=== PATIENT | female | born 1955 | race Caucasian/White ===

== ENCOUNTER → 2017-10-19 | Outpatient (CLI) | payer BC ==
--- NOTE | 2017-10-19 14:33 | MR ---
EXAMINATION TYPE: MR knee RT wo con DATE OF EXAM: 10/19/2017 COMPARISON: Outside right knee x-ray from 2 weeks ago. HISTORY: Rt knee pain per order. Pain for 2 years per patient. TECHNIQUE: Multiplanar, multisequence images of the knee is performed without IV contrast. FINDINGS: MEDIAL MENISCUS: Anterior horn is intact without tear. There is triangular shaped opacity posterior h orn of medial meniscus does not extend to articular surface. LATERAL MENISCUS: Anterior and posterior horns are intact without tear. CRUCIATE LIGAMENTS: The anterior and posterior cruciate ligaments are intact and unremarkable. COLLATERAL LIGAMENTS: The medial collateral ligament and lateral collateral ligament complex are inta ct and unremarkable. EXTENSOR MECHANISM: Visualized quadriceps and patellar tendons are intact. EFFUSION: There is moderate size suprapatellar joint effusion. POPLITEAL CYST: No popliteal/guevara cyst. TRICOMPARTMENT SPACES: Fairly moderate joint space loss patellofemoral compartment is seen. There is more mild joint space loss is mild to moderate spurring lateral and medial tibiofemoral compartments. CARTILAGE: Tricompartment articular cartilage is fairly well-maintained. BONE MARROW SIGNAL: No focal abnormal marrow signal is appreciated. OTHER: There is increased fluid anterior superficial infrapatellar soft tissue. IMPRESSION: 1. Intrasubstance tear posterior horn of medial meniscus. No full-thickness meniscal or ligamentous t ear is evident. 2. Background mild to moderate tricompartment degenerative changes as detailed above. 3. Moderate size suprapatellar joint effusion.
== END | disposition home or self-care (01) ==
LOC: RADMRIMAIN 13:08
PROVIDERS: ATTEND Orthopaedic Surgery
DX: S83.241A Other tear of medial meniscus, current injury, right knee, initial encounter (principal); M25.461 Effusion, right knee

== ENCOUNTER 2018-03-22 13:00 | Day surgery (SDC) | payer BC ==
[2018-03-21 08:13] VITALS: BMI 39.9
--- NOTE | 2018-03-22 12:40 | P.GSHP ---
History of Present Illness H&P Date: 03/22/18 CHIEF COMPLAINT: Colon screen HISTORY OF PRESENT ILLNESS: The patient is a 62-year-old female who presents for colon screen. Lower endoscopy was offered for further evaluation and management. PAST MEDICAL HISTORY: Please see list. PAST SURGICAL HISTORY: Please see list. MEDICATIONS: Please see list. ALLERGIES: Please see list. SOCIAL HISTORY: No illicit drug use FAMILY HISTORY: No reports of Crohn disease or ulcerative colitis. REVIEW OF ORGAN SYSTEMS: CONSTITUTIONAL: No reports of fevers or chills. PHYSICAL EXAM: VITAL SIGNS: Stable GENERAL: Well-developed pleasant in no acute distress. HEENT: No scleral icterus. Extraocular movements grossly intact. Moist buccal mucosa. NECK: Supple without lymphadenopathy. CHEST: Unlabored respirations. Equal bilateral excursions. CARDIOVASCULAR: Regular rate and rhythm. Distal 2+ pulses. ABDOMEN: Soft, nontender, nondistended. MUSCULOSKELETAL: No clubbing, cyanosis, or edema. ASSESSMENT: 1. Colon screen. PLAN: 1. Recommend proceeding with a lower endoscopy Past Medical History Past Medical History: Hyperlipidemia, Thyroid Disorder Additional Past Medical History / Comment(s): FACTOR V LEIDEN. PAST HX OF A- FIB HAD ABLATION NO FURTHER PROBLEMS History of Any Multi-Drug Resistant Organisms: None Reported Past Surgical History: Cardiac Ablation Additional Past Surgical History / Comment(s): d & c Past Anesthesia/Blood Transfusion Reactions: Motion Sickness, Postoperative Nausea & Vomiting (PONV) Smoking Status: Never smoker - Past Family History Father Family Medical History: Cancer Mother Family Medical History: Deep Vein Thrombosis (DVT) Sister(s) Family Medical History: Cancer Medications and Allergies Home Medications Medication Instructions Recorded Confirmed Type Aspirin EC [Ecotrin Low Dose] 81 mg PO DAILY 03/21/18 03/21/18 History Calcium Carbonate/Vitamin D3 1 tab PO DAILY 03/21/18 03/21/18 History [Calcium 600-Vit D3 200 Tablet] Levothyroxine Sodium [Synthroid] 75 mcg PO DAILY 03/21/18 03/21/18 History Magnesium Gluconate [Magonate] 500 mg PO DAILY 03/21/18 03/21/18 History Simvastatin 40 mg PO DAILY 03/21/18 03/21/18 History Allergies Allergy/AdvReac Type Severity Reaction Status Date / Time No Known Allergies Allergy Verified 03/21/18 08:04
[2018-03-22 13:22] VITALS: RESP 16; TEMP 96.9
[2018-03-22] MEDS ORDERED: LIDOCAINE 1% 20 ML VIAL (10MG/ML) FOR IV START INTRADERMA ONE (13:35)
[2018-03-22] MEDS: LACTATED RINGERS 1,000 ML IV SCH ×2 (13:35→14:37)
[2018-03-22] MEDS ORDERED: fentaNYL (PF) 50 MCG/ML 2 ML AMP ONE (14:17)
[2018-03-22] MEDS ORDERED: LIDOCAINE 1% INJ 10MG/ML (20 ML MDV) ONE (14:17)
[2018-03-22] MEDS ORDERED: PROPOFOL 10 MG/ML 20 ML VIAL IV ONE (14:17)
--- NOTE | 2018-03-22 14:46 | P.PCN ---
Date of Procedure: 03/22/18 Description of Procedure: PREOPERATIVE DIAGNOSIS: Colonoscopy screening. Family history of colon cancer, first degree relative. POSTOPERATIVE DIAGNOSIS: Colonoscopy screening. Family history of colon cancer, first degree relative. External hemorrhoids. OPERATION: Colonoscopy to the ileocecal valve and appendiceal orifice. SURGEON: Sujey Pollock MD. ANESTHESIA: MAC. INDICATIONS: The patient is a 62-year-old female who presents for her first colonoscopy screening. Benefits and risks were described and informed consent was obtained. DESCRIPTION OF PROCEDURE: The patient had undergone Gatorade, MiraLAX and Dulcolax prep. She had been brought into the operating room and laid in the left lateral decubitus position. After adequate intravenous sedation, the rectum was examined with 2% lidocaine jelly. External hemorrhoids were encountered. The rectal tone was within normal limits. No lesions were palpated in the rectal vault. An Olympus colonoscope was advanced until the ileocecal valve and appendiceal orifice were clearly viewed. The prep was good with visualization of the mucosal folds. No scattered diverticulosis was encountered. No colonic polyps were found. No evidence of focal colitis was found. Retroflexion of the scope demonstrated grade 1 internal hemorrhoids without active bleeding or inflammation. The colon was desufflated. The patient had tolerated the procedure well. Withdrawal time was over 6 minutes. FINDINGS: Internal hemorrhoids, grade 1 External prolapsed hemorrhoids, grade 2 Anal skin tag No sigmoid diverticulosis. No arteriovenous malformations. No adenomatous polyps. No focal colitis. RECOMMENDATIONS: Lower endoscopy in 5 years, 2022 for family history of colon cancer. Plan - Discharge Summary New Discharge Prescriptions: No Action Magnesium Gluconate [Magonate] 500 mg PO DAILY Levothyroxine Sodium [Synthroid] 75 mcg PO DAILY Aspirin EC [Ecotrin Low Dose] 81 mg PO DAILY Simvastatin 40 mg PO DAILY Calcium Carbonate/Vitamin D3 [Calcium 600-Vit D3 200 Tablet] 1 tab PO DAILY Discharge Medication List Aspirin EC [Ecotrin Low Dose] 81 mg PO DAILY 03/21/18 [History] Calcium Carbonate/Vitamin D3 [Calcium 600-Vit D3 200 Tablet] 1 tab PO DAILY [History] Levothyroxine Sodium [Synthroid] 75 mcg PO DAILY 03/21/18 [History] Magnesium Gluconate [Magonate] 500 mg PO DAILY 03/21/18 [History] Simvastatin 40 mg PO DAILY 03/21/18 [History]
[2018-03-22 14:59] VITALS: BP 127/78; PULSE 66
== END 2018-03-22 15:27 | disposition home or self-care (01) ==
LOC: ORWHC2ENDO 13:00
PROVIDERS: ATTEND Surgery Plastic and Reconstructive Surgery
DX: Z12.11 Encounter for screening for malignant neoplasm of colon (principal); K64.0 First degree hemorrhoids; K64.1 Second degree hemorrhoids; K64.4 Residual hemorrhoidal skin tags; Z80.0 Family history of malignant neoplasm of digestive organs; E78.5 Hyperlipidemia, unspecified; E07.9 Disorder of thyroid, unspecified; D68.51 Activated protein C resistance; Z79.82 Long term (current) use of aspirin; Z79.890 Hormone replacement therapy; Z79.899 Other long term (current) drug therapy
CPT/HCPCS: J2001; J3010; J2704; G0105

== ENCOUNTER → 2019-02-27 | Outpatient (CLI) | payer BC ==
--- NOTE | 2019-02-27 14:14 | BD ---
EXAMINATION TYPE: Axial Bone Density DATE OF EXAM: 02/27/2019 COMPARISON: NONE CLINICAL HISTORY: Height: 5 FT 4 IN Weight: 244 FRAX RISK QUESTIONS: History of Fracture in Adulthood: YES Secondary Osteoporosis: 3. Menopause before 45: YES RISK FACTORS HISTORY OF: Family History of Osteoporosis: YES Active: YES Postmenopausal woman: DONE BEFORE 41 MEDICATIONS: Thyroid Medications: YES Which medication: LEVOTHYROXINE How Long: SEV YEARS Additional Medications: LEVOTHYROXINE, CHOLESTEROL MEDS, CALCIUM ,BABY ASPIRIN, MAGNESIUM Additional History: EXAM MEASUREMENTS: Bone mineral densitometry was performed using the Super Vitamin D System. Bone mineral density as measured about the Lumbar spine is: ----- L1-L4(G/cm2): 1.169 T Score Values are as follows: ----- L2: -0.5 ----- L3: 0.3 ----- L4: -0.1 ----- L1-L4: -0.1 Bone mineral density has: DECREASED -15.9 % since study of: 2001 Bone mineral density about the R hip (g/cm2): 0.763 Bone mineral density about the L hip (g/cm2): 0.773 T Score values are as follows: -----R Neck: -2.0 -----L Neck: -1.9 -----R Total: -1.0 -----L Total: -1.2 Bone mineral density has: DECREASED -5.2 % since study of: 2001 IMPRESSION: Osteopenia of the left hip. NOTE: T-SCORE=SD OF THE YOUNG ADULT MEAN.
== END | disposition home or self-care (01) ==
LOC: RADBDWWP 09:52
PROVIDERS: ATTEND Family Medicine
DX: M16.11 Unilateral primary osteoarthritis, right hip (principal)
CPT/HCPCS: 77080

== ENCOUNTER → 2023-12-27 | Outpatient (CLI) | payer BC ==
[2023-12-27 18:48] LABS: ALT 15 U/L (8-44); AST 23 U/L (13-35); Albumin 4.3 g/dL (3.8-4.9); Albumin/Globulin Ratio 1.54 Ratio (1.60-3.17); Alkaline Phosphatase 70 U/L (41-126); Calcium 9.9 mg/dL (8.7-10.3); Chloride 101 mmol/L (96-109); Globulin 2.8 g/dL (1.6-3.3); Glucose 126 mg/dL (70-110); Magnesium 2.1 mg/dL (1.5-2.4); Potassium 4.5 mmol/L (3.5-5.5); Sodium 138 mmol/L (135-145); Total Bilirubin 0.4 mg/dL (0.3-1.2); Total Protein 7.1 g/dL (6.2-8.2)
== END | disposition home or self-care (01) ==
LOC: LABWHC1 13:45
PROVIDERS: ATTEND Internal Medicine Clinical Cardiac Electrophysiology
DX: I48.91 Unspecified atrial fibrillation (principal)
CPT/HCPCS: 36415; 80053; 83735; 84443

== ENCOUNTER → 2024-03-12 | Outpatient (CLI) | payer MEDICARE ==
--- NOTE | 2024-03-13 19:13 | MM ---
Reason for Exam: Screening (asymptomatic). Last mammogram was performed 1 year(s) and 7 month(s) ago. Patient History: Menarche at age 13. First Full-Term at age 30. Postmenopausal. Risk Values: Maite 5 year model risk: 1.9%. NCI Lifetime model risk: 6.4%. Prior Study Comparison: 02/13/2001 Bilateral Screening Mammogram, [facility]. 06/25/2002 Bilateral Screening Mammogram, [facility]. Tissue Density: There are scattered areas of fibroglandular density. Findings: Analyzed By CAD. Focal asymmetry central posterior left breast is more defined. This may represent superimposition shadow but further evaluation is recommended. Otherwise, no significant change. Overall Assessment: Incomplete: need additional imaging evaluation, BI-RAD 0 Management: Special View Mammogram of the left breast. Diagnostic Breast Ultrasound of the left breast. [facility] will attempt to contact patient to return for supplemental views and ultrasound if indicated. Electronically signed and approved by: Merline Ramirez M.D. Radiologist
== END | disposition home or self-care (01) ==
LOC: RADMAMWWP 13:48
PROVIDERS: ATTEND Family Medicine
DX: Z12.31 Encounter for screening mammogram for malignant neoplasm of breast (principal); Z78.0 Asymptomatic menopausal state
CPT/HCPCS: 77067

== ENCOUNTER → 2024-03-15 | Outpatient (CLI) | payer MEDICARE ==
--- NOTE | 2024-03-15 13:55 | MM ---
Reason for Exam: Additional evaluation requested from abnormal screening. Last screening mammogram was performed less than 1 month ago. Patient History: Menarche at age 13. First Full-Term at age 30. Postmenopausal. Risk Values: Maite 5 year model risk: 1.9%. NCI Lifetime model risk: 6.4%. Prior Study Comparison: 05/21/2021 Bilateral Screening Mammogram, [facility]. 08/23/2022 Bilateral Screening Mammogram, [facility]. 03/12/2024 Bilateral MG screening mammo w CAD, [facility]. Tissue Density: Left: There are scattered areas of fibroglandular density. Findings: Analyzed By CAD. Area of concern/asymmetry compresses out on spot compression imaging. No suspicious masses, calcifications or distortions. Overall Assessment: Negative, BI-RAD 1 Management: Screening Mammogram of both breasts in 1 year. Results were given to the patient verbally at the time of exam. Patient should continue monthly self-breast exams. A clinical breast exam by your physician is recommended on an annual basis. This exam should not preclude additional follow-up of suspicious palpable abnormalities. Note on Maite scores and lifetime risk: 1. A Maite score greater than 3% is considered moderate risk. If this is the case, consider specialist referral to assess eligibility for a risk reducing agent. 2. If overall lifetime risk for the development of breast cancer is 20% or higher, the patient may qualify for future screening with alternating mammogram and breast MRI. Electronically signed and approved by: Chris Shaffer DO
== END | disposition home or self-care (01) ==
LOC: RADMAMWWP 13:15
PROVIDERS: ATTEND Family Medicine
DX: R92.322 Mammographic fibroglandular density, left breast (principal); Z78.0 Asymptomatic menopausal state
CPT/HCPCS: 77065; G0279; 77061

== ENCOUNTER → 2024-03-29 | Outpatient (CLI) | payer MEDICARE ==
[2024-03-29 19:22] LABS: Blood Urea Nitrogen 11.4 mg/dL (9.0-27.0); Carbon Dioxide 28.2 mmol/L (21.6-31.8); Chloride 99 mmol/L (96-109); Potassium 4.3 mmol/L (3.5-5.5); Sodium 137 mmol/L (135-145)
[2024-03-29 19:38] LABS: HCT 39.9 % (37.2-46.3); HGB 13.1 g/dL (12.0-15.0); MCH 31.9 pg (27.0-32.0); MCHC 32.8 g/dL (32.0-37.0); MCV 97.1 FL (80.0-97.0); Mean Platelet Volume 10.6 FL (9.5-12.2); NRBC Per 100 WBC 0 X 10*3/uL (0.00-0.01); Platelet Count 166 X 10*3/uL (140-440); RBC 4.11 X 10*6/uL (4.10-5.20); RDW 11.8 % (11.5-14.5); WBC 8.89 X 10*3/uL (4.50-10.00)
== END | disposition home or self-care (01) ==
LOC: LABPAT 14:07
PROVIDERS: ATTEND Internal Medicine Clinical Cardiac Electrophysiology
DX: Z01.812 Encounter for preprocedural laboratory examination (principal); I48.0 Paroxysmal atrial fibrillation
CPT/HCPCS: 36415; 80051; 82565; 84520; 85027

== ENCOUNTER 2024-04-11 07:45 | Day surgery (SDC) | payer BC, MEDICARE ==
[2024-04-09 09:35] VITALS: BMI 22.6
[2024-04-11] MEDS: SODIUM CHLORIDE 0.9% 1,000 ML IV SCH (08:15)
[2024-04-11] MEDS: ONDANSETRON 4 MG/2 ML VIAL ONE (08:19)
[2024-04-11] MEDS: METOCLOPRAMIDE 5 MG/ML 2 ML VIAL IVP ONE (08:21)
[2024-04-11 08:57] LABS: ALT 16 U/L (4-34); AST 25 U/L (14-36); African American GFR (CKD) >90 (>60 ml/min/1.73 sqM); Albumin 4.3 g/dL (3.5-5.0); Alkaline Phosphatase 81 U/L (38-126); Anion Gap 6 mmol/L; Blood Urea Nitrogen 9 mg/dL (7-17); Calcium 9.4 mg/dL (8.4-10.2); Carbon Dioxide 26 mmol/L (22-30); Chloride 105 mmol/L (98-107); Glucose 97 mg/dL (74-99); Non-African American GFR(CKD) 83 (>60 ml/min/1.73 sqM); Sodium 137 mmol/L (137-145); Total Bilirubin 0.8 mg/dL (0.2-1.3); Total Protein 7.3 g/dL (6.3-8.2)
[2024-04-11] MEDS ORDERED: MIDAZOLAM 2 MG/2 ML VIAL ONE (09:26)
[2024-04-11] MEDS ORDERED: diphenhydrAMINE 50 MG/ML 1 ML VIAL ONE (09:26)
[2024-04-11] MEDS ORDERED: LIDOCAINE 1% INJ 10MG/ML (20 ML MDV) ONE (09:26)
[2024-04-11] MEDS ORDERED: PROPOFOL 10 MG/ML 20 ML VIAL IV ONE (09:26)
[2024-04-11] MEDS ORDERED: HEPARIN SODIUM,PORCINE 5,000 UNIT/ML 1 ML VIAL ONE (09:26)
[2024-04-11] MEDS ORDERED: SUCCINYLCHOLINE CHLORIDE 200 MG/10 ML VIAL IV ONE (09:26)
[2024-04-11] MEDS ORDERED: PHENYLEPHRINE 10 MG/ML VIAL ONE (09:26)
[2024-04-11] MEDS ORDERED: ISOPROTERENOL 250 MCG/1.25 ML SYR IV ONE (09:26)
[2024-04-11] MEDS ORDERED: DEXAMETHASONE SOD PHOSPHATE 4 MG/ML 1 ML VIAL ONE (09:26)
[2024-04-11] MEDS ORDERED: fentaNYL (PF) 50 MCG/ML 2 ML AMP ONE (09:26)
[2024-04-11] MEDS: HEPARIN SOD,PORK IN 0.45% NACL 25,000 UNIT in 0.45% NACL 1 250ML.BAG IV ONE (10:08)
[2024-04-11] MEDS: LIDOCAINE 1% INJ 10MG/ML (20 ML MDV) SQ ONE (10:10)
[2024-04-11] MEDS: IOPAMIDOL-370 100ML BTL INJ ONE (12:03)
--- NOTE | 2024-04-11 12:25 | P.EPPROC ---
- EP Procedure Note Electrophysiology Procedure Note: PROCEDURE A. fib ablation DIAGNOSIS Atrial fibrillation, symptomatic, refractory to therapy RESULT No left atrial appendage mass seen on intracardiac echo Successful A. fib ablation/pulmonary vein isolation of all veins using cryo- ablation Complete entrance block in all 4 veins confirmed Pulm left-sided pulmonary venous os with a large common vestibule No evidence for phrenic nerve injury Esophageal deflection YES PROCEDURE DETAILS Written informed consent prior to procedure. Patient brought to the EP lab. General anesthesia given. Heparin administered. A city maintained above 300 seconds Both groins prepped and draped per protocol and venous sheaths placed. Esophagus intubated, circa catheter for temperature monitoring an endoscope for possible esophageal deflection. Phrenic nerve monitoring performed. Esophageal temperature monitoring performed. Esophageal deflection performed if circa catheter overlapping with the balloon or circa temperature less than 27.5C Intracardiac echocardiography performed. Pericardium evaluated. Left atrial appendage evaluated. Left atrium evaluated along with pulmonary veins Transseptal catheterization performed under fluoroscopic guidance and intracardiac echo guidance Cryoablation sheath exchanged, balloon catheter along with achieve catheter placed in the left atrium. Pulmonary veins isolated in the following sequence: Left superior pulmonary vein followed by left inferior pulmonary vein, followed by right inferior pulmonary vein and lastly right superior pulmonary vein. Phrenic nerve stimulation along with capture thresholds within the SVC and right superior pulmonary vein to identify the phrenic nerve proximity to the cryo- balloon. Pulmonary veins isolated and confirmed with entrance and exit block. Phrenic nerve integrity confirmed at the end of the procedure Ablation of the left atrial septum performed with cannulation of the superior branch of the right inferior or the inferior branch of the right superior vein to achieve ablation of the posterior septum of the left atrium. Ablation of electrograms confirmed Diagnostic catheters for the high right atrium, His bundle, coronary sinus placed. LA and RA pressures recorded RA pressure: 8/2/5 LA pressure: 18/0/8 Diagnostic EP study with coronary sinus pacing and recording Baseline measurements: Sinus recovery times were 1321, 1438 and 1399 ms Sinus cycle length 1169, WI interval 123 ms, QRS 103 ms and QT interval 408 ms AH 65 and HV 31 ms AV node Wenckebach block 300 ms Burst stimulation from the high right atrium performed from 400 ms down to 200 ms. No atrial fibrillation High-dose Isopril used Burst stimulation from the coronary sinus os from 400 ms down to 300 ms. No inducible atrial fibrillation Venous sheaths were removed and hemostasis assured with a closure device. Patient extubated and transferred to recovery Increase procedural time Occlusion of the right superior pulmonary vein was difficult and multiple attempts were made for complete occlusion was performed successfully. This vein arose more anteriorly than expected but was successfully occluded and ablated with complete isolation. Excellent temperatures The common vein on the left side had a very large vestibule. Multiple shorter ablations were performed superiorly, posteriorly, inferiorly and anteriorly to encircle the entire vestibule. 2 short separate ablations were performed for the superior and for the inferior veins and complete isolation and ablation of the veins and the vestibule was achieved PROCEDURES PERFORMED Diagnostic EP study CS pacing and recording Left and right transseptal catheterization Catheter the mapping of the tachycardia Intracardiac echocardiography Pulmonary vein isolation with transseptal and comprehensive EPS, 60932 Extended procedure duration Drug infusion, +[id number] Linear ablation, left atrium, +[id number]
--- NOTE | 2024-04-11 12:45 | P.HPCAR ---
History of Present Illness This is Dr. Ricketts dictating an H/P on this patient The patient was interviewed and examined IMPRESSION / ASSESSMENT: Symptomatic, paroxysmal atrial fibrillation with RVR high A-fib burden despite flecainide Normal TSH Hypertension on medical treatment Dyslipidemia, on statins PLAN: A-fib ablation with pulmonary vein isolation continue anticoagulation HPI Patient continues to have episodes of atrial fibrillation with RVR and she can feel the palpitations No dizziness no loss of consciousness no chest pain no fever chills cough expectoration ROS: No fever chills or rigors, no cough, phlegm or expectoration, no nausea, vomiting or diarrhea, no hematuria, dysuria, no musculoskeletal complaints, no strokes or seizures, no skin lesions. EXAMINATION: Pulse rate in the 70s blood pressure 102/50 mmHg Normal heart sounds Normal breath sounds No JVD No lower extremity edema REVIEW OF LABS, ECG & MEDICAL DATA Normal electrolytes Normal renal function Normal liver function TSH 4.8 Physical Exam Vitals: Vital Signs Temp Pulse Resp BP Pulse Ox 04/11/24 12:39 74 16 102/50 100 04/11/24 12:21 97 F L 82 14 109/53 99 04/11/24 08:02 98.3 F 75 16 146/73 97 Intake and Output 04/10/24 04/11/24 04/11/24 22:59 06:59 14:59 Intake Total 778 Balance 778 Intake: IV 778 Other: Weight 107.3 kg Past Medical History Past Medical History: Atrial Fibrillation, Blood Disorder, Hyperlipidemia, Thyroid Disorder Additional Past Medical History / Comment(s): See Dr Ricketts's H&P. FACTOR V LE IDEN. History of Any Multi-Drug Resistant Organisms: None Reported Past Surgical History: Cardiac Ablation Additional Past Surgical History / Comment(s): D&C, loop monitor implant. Past Anesthesia/Blood Transfusion Reactions: Motion Sickness, Postoperative Nausea & Vomiting (PONV) Past Psychological History: No Psychological Hx Reported Smoking Status: Never smoker Past Alcohol Use History: None Reported Past Drug Use History: None Reported - Past Family History Father Family Medical History: Cancer Mother Family Medical History: Deep Vein Thrombosis (DVT) Sister(s) Family Medical History: Cancer Physical Examination Vital Signs Temp Pulse Resp BP Pulse Ox 04/11/24 12:39 74 16 102/50 100 04/11/24 12:21 97 F L 82 14 109/53 99 06/13/24 08:02 98.3 F 75 16 146/73 97 Intake and Output 04/10/24 04/11/24 04/11/24 22:59 06:59 14:59 Intake Total 778 Balance 778 Intake: IV 778 Other: Weight 107.3 kg Results 04/11/24 08:05 Cardiac Enzymes 04/11/24 Range/Units 08:05 AST 25 (14-36) U/L Comprehensive Metabolic Panel 04/11/24 Range/Units 08:05 Sodium 137 (137-145) mmol/L Potassium 4.0 (3.5-5.1) mmol/L Chloride 105 (98-107) mmol/L Carbon Dioxide 26 (22-30) mmol/L BUN 9 (7-17) mg/dL Creatinine 0.75 (0.52-1.04) mg/dL Glucose 97 (74-99) mg/dL Calcium 9.4 (8.4-10.2) mg/dL AST 25 (14-36) U/L ALT 16 (4-34) U/L Alkaline Phosphatase 81 (38-126) U/L Total Protein 7.3 (6.3-8.2) g/dL Albumin 4.3 (3.5-5.0) g/dL Current Medications Generic Name Dose Route Start Last Admin Trade Name Freq PRN Reason Stop Dose Admin Apixaban 5 mg 04/11/24 21:00 Apixaban 5 Mg Tab PO 05/11/24 21:01 BID [facility] Protocol Atorvastatin Calcium 20 mg 04/12/24 09:00 Atorvastatin 20 Mg Tab PO 05/12/24 09:01 DAILY [facility] Flecainide Acetate 25 mg 04/11/24 21:00 Flecainide 50 Mg Tab PO 05/11/24 21:01 Q12HR [facility] Sodium Chloride 1,000 mls @ 50 mls/hr 04/11/24 05:55 04/11/24 08:15 Saline 0.9% IV 05/11/24 05:56 750 mls .Q20H RICARDA Administration Levothyroxine Sodium 112 mcg 04/12/24 06:30 Levothyroxine 112 Mcg [place] 0630 [facility] Magnesium Oxide 400 mg 04/12/24 09:00 Magnesium Oxide 400 Mg Tab PO 05/12/24 09:01 DAILY [facility] Metoprolol Succinate 50 mg 04/11/24 21:00 Metoprolol Succinate (Er) 50 Mg Tab.Er.24h PO 05/11/24 21:01 BID RICARDA Intake and Output 04/10/24 04/11/24 04/11/24 22:59 06:59 14:59 Intake Total 778 Balance 778 Intake: IV 778 Other: Weight 107.3 kg Patient Weight 04/12/24 06:59 Weight 107.3 kg 04/11/24 08:05
[2024-04-11 13:17] LABS: Glucose,Whole Blood 105 mg/dL (70-110)
[2024-04-11] MEDS: METOCLOPRAMIDE 5 MG/ML 2 ML VIAL ONE (13:26)
[2024-04-11] MEDS: FLECAINIDE 50 MG TAB PO SCH (21:05)
[2024-04-11] MEDS: METOPROLOL SUCCINATE (ER) 50 MG TAB.ER.24H PO SCH (21:05)
[2024-04-11] MEDS: APIXABAN 5 MG TAB PO SCH (21:05)
[2024-04-12 02:45] VITALS: RESP 14; TEMP 98
[2024-04-12] MEDS: LEVOTHYROXINE 112 MCG TAB PO SCH (05:58)
[2024-04-12] MEDS: MAGNESIUM OXIDE 400 MG TAB PO SCH (07:58)
[2024-04-12] MEDS: ATORVASTATIN 20 MG TAB PO SCH (08:00)
[2024-04-12 08:44] VITALS: BP 118/70; PULSE 73
--- NOTE | 2024-04-12 10:11 | P.DS ---
Providers Attending physician: Randall Ricketts Primary care physician: [facility] Course: Patient is sitting comfortably in bed No chest discomfort dizziness or lightheadedness Yesterday she underwent successful A-fib ablation Today her blood pressure is 118/70 mmHg pulse rate in the 70s afebrile Heart sounds S1-S2 normal Breath sounds are clear Impression paroxysmal atrial fibrillation with RVR, symptomatic with failed flecainide therapy Uterine cyst awaiting D&C Suggest Unless there is a very high or a strong suspicion for a malignant neoplastic process I would hold off on a D&C for the next 2 months She is just had her A-fib ablation and anticoagulation should not be held for a minimum of 2 months unless it is absolutely necessary Increased risk of stroke This was explained to the patient According to her the bleeding spotting Plan - Discharge Summary Discharge Rx Participant: No New Discharge Prescriptions: No Action Magnesium Gluconate [Magonate] 500 mg PO DAILY Simvastatin 40 mg PO DAILY Calcium Carbonate/Vitamin D3 [Calcium 600-Vit D3 200 Tablet] 1 tab PO DAILY Apixaban [Eliquis] 5 mg PO BID Levothyroxine Sodium 112 mcg PO DAILY Flecainide [Tambocor] 25 mg PO Q12HR Glucosamine/Chondr Askwe A Sod [Osteo Bi-Flex Caplet] 1 each PO BID Elderberry Fruit and Flower [Black Elderberry 575 mg Cap] 1,000 mg PO DAILY Metoprolol Succinate (ER) [Toprol Xl] 50 mg PO TID Discharge Medication List Calcium Carbonate/Vitamin D3 [Calcium 600-Vit D3 200 Tablet] 1 tab PO DAILY 03/21/18 [History] Magnesium Gluconate [Magonate] 500 mg PO DAILY 03/21/18 [History] Simvastatin 40 mg PO DAILY 03/21/18 [History] Apixaban [Eliquis] 5 mg PO BID 04/09/24 [History] Elderberry Fruit and Flower [Black Elderberry 575 mg Cap] 1,000 mg PO DAILY 04/09/24 [History] Flecainide [Tambocor] 25 mg PO Q12HR 04/09/24 [History] Glucosamine/Chondr Askew A Sod [Osteo Bi-Flex Caplet] 1 each PO BID 04/09/24 [History] Levothyroxine Sodium 112 mcg PO DAILY 04/09/24 [History] Metoprolol Succinate (ER) [Toprol Xl] 50 mg PO TID 04/09/24 [History] Follow up Appointment(s)/Referral(s): Randall Ricketts MD [STAFF PHYSICIAN] - 04/19/24 10:30 am (Appointment will be at the main office)
== END 2024-04-12 12:50 | disposition home or self-care (01) ==
LOC: CATHEP 07:45 → 6NMEDSUR 12:05 → CATHEP 04-12 12:50
PROVIDERS: ATTEND Internal Medicine Clinical Cardiac Electrophysiology
DX: I48.0 Paroxysmal atrial fibrillation (principal); I47.19 Other supraventricular tachycardia; E78.5 Hyperlipidemia, unspecified; I10 Essential (primary) hypertension; E03.9 Hypothyroidism, unspecified; Z79.01 Long term (current) use of anticoagulants; Z79.890 Hormone replacement therapy; Z79.899 Other long term (current) drug therapy
CPT/HCPCS: 93623; 93656; 86900; 86901; 80053; 84443; 86850; C1894 ×2; C1769 ×3; C1760 ×2; C1730 ×2; C1759; C1893; C1733; C1766; J2765; J2405; J2001; Q9967; J1644

== ENCOUNTER → 2024-10-09 | Outpatient (CLI) | payer MEDICARE ==
[2024-10-09 14:52] LABS: African American GFR (CKD) 88 (>60 ml/min/1.73 sqM); Blood Urea Nitrogen 8 mg/dL (7-17); Non-African American GFR(CKD) 77 (>60 ml/min/1.73 sqM)
--- NOTE | 2024-10-11 20:23 | CT ---
EXAMINATION TYPE: CT ChestAbdPelvis w con DATE OF EXAM: 10/09/2024 5:06 PM COMPARISON: None. CLINICAL INDICATION: Female, 68 years old with history of C54.1 MALIGNANT NEOPLASM OF ENDOMETRIUM, MA LIGNANT NEOPLASM OF ENDOMETRIUM. TECHNIQUE: Axial images at 5 mm thick sections. Reconstructed images in the coronal plane. Delayed images through the kidneys. Contrast used:100ml mL of Isovue 300 with IV Contrast, (none if empty) Oral contrast used: with Oral Contrast (none if empty) CT DLP: 1287 mGycm, Automated exposure control for dose reduction was used. FINDINGS: CT CHEST: Portion of the thyroid visualized is normal. No suspicious lung nodules or focal infiltrates are present. No enlarged mediastinal or hilar adenopathy is evident. The ascending aorta diameter at the level of the main pulmonary artery is 3.2 cm. The main pulmonary artery diameter at the bifurcation is 2.[address] ABDOMEN: Liver: Normal Spleen: Normal Pancreas: Normal Adrenal glands: The adrenal glands are normal. Gallbladder: Normal Kidneys: No masses are evident. No hydronephrosis is present. No cysts are present. Delayed images were obtained through the kidneys, which remain unremarkable. Aorta: Normal Inferior vena cava: Normal. CT PELVIS: Loops of bowel within the abdomen and pelvis are normal. There are loops of bowel which are incom pletely distended or lack oral contrast limiting their evaluation. Appendix: Normal as visualized. Urinary bladder: Decompressed with limited evaluation Genitourinary structures: Uterus and ovaries are not identified. Osseous structures: No suspicious lytic or sclerotic lesions. Facet degenerative changes are in the l ower lumbar spine IMPRESSION: 1. No suspicious changes to suggest recurrent or metastatic neoplasm [facility], , 10/11/2024 8:21 PM
== END | disposition home or self-care (01) ==
LOC: RADCTMAIN 13:48
PROVIDERS: ATTEND Internal Medicine Hematology & Oncology
DX: C54.1 Malignant neoplasm of endometrium (principal); I48.91 Unspecified atrial fibrillation; E78.5 Hyperlipidemia, unspecified; Z71.3 Dietary counseling and surveillance
CPT/HCPCS: 82565; 84520; 71260; 74177; 36415; Q9967